=== PATIENT | female | born 1990 | race Two or more races ===

== ENCOUNTER 2018-11-22 05:27 | Emergency (ER) | payer OTHER ==
[~2018-11-22] VITALS: Ht 162.6 cm; Wt 98.4 kg
[2018-11-22] MEDS ORDERED: FIORICET (05:49)
== END 2018-11-22 11:35 | disposition home or self-care (01) ==
LOC: ER 05:27
DX: K52.9 Noninfective gastroenteritis and colitis, unspecified (principal)

== ENCOUNTER 2023-10-05 17:00 | Emergency (ER) | payer OTHER ==
[~2023-10-05] VITALS: Ht 162.6 cm; Wt 123.4 kg
[~2023-10-05 17:00] MED LIST: FIORICET
[2023-10-05] MEDS ORDERED: MAGNESIUM200 MG (17:09)
[2023-10-05] MEDS ORDERED: NITROGLYCERIN IN 5 % DEXTROSE 250 ML IV ONE (17:15)
[2023-10-05] MEDS ORDERED: ASPIRIN 325 MG TABLET PO ONE (17:15)
[2023-10-05] MEDS ORDERED: MORPHINE SULFATE 4 MG/ML VIAL IV ONE (17:30)
[2023-10-05 17:33] LABS: HEMATOCRIT 42.3 % (36.0-45.00); MEAN CELL VOLUME 75.6 fL (80.00-100.00); PLATELET COUNT 284 K/uL (150-450); RED CELL DISTRIBUTION WIDTH 16.1 % (11.5-14.5)
[2023-10-05 17:52] LABS: ALBUMIN 3.5 gm/dL (3.4-5.0); BILIRUBIN TOTAL 0.53 mg/dL (0.3-1.2); CALCIUM 9.1 mg/dL (8.5-10.1); CREATININE SERUM 0.78 mg/dL (0.55-1.02); GFR 85.59; GLOBULINA 4.6 G/DL (2.4-3.5); POTASSIUM 3.77 mEq/L (3.5-5.1); TOTAL PROTEIN 8.1 gm/dL (6.4-8.2)
[2023-10-05 18:02] LABS: D DIMER 0.43 MG/L; PARTIAL THROMBOPLASTIN TIME 25.6 SECONDS (22.0-34.0)
[2023-10-05 18:03] LABS: INR 1.02; PROTHROMBIN TIME 10.7 SECONDS (9.0-11.5)
[2023-10-05 18:05] LABS: ABG PH 7.396 (7.35-7.45); ABG PO2 79.8 mmHg (80-100); ABG pCO2 43.6 mmHg (35-45); SaO2 95.6 %
[2023-10-05 18:06] LABS: URINE APPEARANCE Clear; URINE BILIRRUBIN Negative (NEGATIVE); URINE BLOOD Moderate; URINE COLOR Yellow; URINE GLUCOSE Negative (NEGATIVE); URINE LEUKOCYTE Negative; URINE NITRATE Negative; URINE PROTEIN Negative (NEGATIVE); URINE UROBILINOGEN 0.2 E.U./dl
[2023-10-05 18:06] LABS: BICARBONATE 26.1 mmol/l (23-25); Tco2 27.5 mmol/l; allen test SATISFACTORY; o2 21 %; puncture site RADIAL RIGHT
[2023-10-05 18:09] LABS: URINE BACTERIA 1869.7 uL (0.0-1933); URINE EPITHELIAL CELLS 35.2 uL (0.0-38.8); URINE RBC 4.8 uL (0.0-20.8); URINE WBC 5.1 uL (0.0-23.2)
== END 2023-10-05 21:41 | disposition home or self-care (01) ==
LOC: ER 17:00
PROVIDERS: General Practice
DX: R07.89 Other chest pain (principal)

== ENCOUNTER 2024-07-13 08:01 | Emergency (ER) | payer OTHER ==
[~2024-07-13] VITALS: Ht 162.6 cm; Wt 86.6 kg
[~2024-07-13 08:01] MED LIST changes: +MAGNESIUM200 MG
[2024-07-13 08:35] VITALS: BP 111/68; O2SAT 98
[2024-07-13] MEDS ORDERED: KETOROLAC TROMETHAMINE 60 MG VIAL IM STA (09:24)
[2024-07-13 10:00] LABS: HEMOGLOBIN 14.2 g/dL (12.0-15.00); MEAN CELL VOLUME 76.7 fL (80.00-100.00); MEAN CORPUSCULAR HEMOGLOBIN 25.9 pg (27.00-32.0); MEAN CORPUSCULAR HGB CONC 33.7 g/dl (32.0-36.0); PLATELET COUNT 240 K/uL (150-450); RED BLOOD COUNT 5.47 M/uL (4.00-6.00); RED CELL DISTRIBUTION WIDTH 16.1 % (11.5-14.5)
[2024-07-13 10:39] LABS: URINE APPEARANCE Cloudy; URINE BILIRRUBIN Negative (NEGATIVE); URINE BLOOD Small; URINE COLOR Yellow; URINE GLUCOSE Negative (NEGATIVE); URINE KETONE Negative (NEGATIVE); URINE LEUKOCYTE Negative; URINE NITRATE Negative; URINE PROTEIN Negative (NEGATIVE); URINE UROBILINOGEN 0.2 E.U./dl
[2024-07-13 10:42] LABS: URINE BACTERIA 1635.4 uL (0.0-1933); URINE EPITHELIAL CELLS 26.7 uL (0.0-38.8); URINE RBC 7.7 uL (0.0-20.8); URINE WBC 8.8 uL (0.0-23.2)
[2024-07-13 11:22] LABS: CALCIUM 8.9 mg/dL (8.5-10.1); CREATININE SERUM 0.64 mg/dL (0.55-1.02); GFR 106.87; POTASSIUM 4.46 mEq/L (3.5-5.1)
== END 2024-07-13 12:54 | disposition home or self-care (01) ==
LOC: ER 08:03
PROVIDERS: General Practice
DX: M54.9 Dorsalgia, unspecified (principal); I50.9 Heart failure, unspecified; N23 Unspecified renal colic; K80.20 Calculus of gallbladder without cholecystitis without obstruction